=== PATIENT | male | born 1955 | race Caucasian/White ===

== ENCOUNTER 2018-10-28 17:05 | Observation (INO) ==
[2018-10-28 19:05] LABS: BASOPHILS # (AUTO) 0.1 X10^3/uL (0.0-0.1); BASOPHILS % (AUTO) 1.3 % (0.2-1.0); EOSINOPHILS # (AUTO) 0.2 x10^3/uL (0.0-0.2); EOSINOPHILS % (AUTO) 3.3 % (0.9-2.9); HEMATOCRIT 44.1 % (42.0-54.0); HEMOGLOBIN 15.2 g/dL (13.5-18.0); LYMPHOCYTES # (AUTO) 1.4 X10^3/uL (1.3-2.9); LYMPHOCYTES % (AUTO) 25.8 % (21.0-51.0); MEAN CORPUSCULAR HEMOGLOBIN 33.9 pg (27.0-34.0); MEAN CORPUSCULAR HGB CONC 34.4 g/dL (33.0-35.0); MEAN CORPUSCULAR VOLUME 98.4 fL (80.0-100.0); MEAN PLATELET VOLUME 8.6 fL (7.4-11.0); MONOCYTES # (AUTO) 0.5 x10^3/uL (0.3-0.8); MONOCYTES % (AUTO) 9.2 % (0.0-13.0); NEUTROPHILS # (AUTO) 3.3 x10^3/uL (2.2-4.8); NEUTROPHILS % (AUTO) 60.4 % (42.0-75.0); PLATELET COUNT 261 X10^3/uL (150.0-450.0); RED BLOOD COUNT 4.49 X10^6/uL (4.7-6.0); RED CELL DISTRIBUTION WIDTH 13.8 % (11.6-16.5); WHITE BLOOD COUNT 5.5 X10^3/uL (3.6-10.0)
[2018-10-28 19:17] LABS: ALANINE AMINOTRANSFERASE 24 Units/L (12-78); ALBUMIN 4.1 g/dL (3.4-5.0); ALKALINE PHOSPHATASE 70 Units/L (46-116); ASPARTATE AMINO TRANSFERASE 17 Units/L (15-37); BLOOD UREA NITROGEN 16 mg/dL (7-18); CALCIUM 9.1 mg/dL (8.5-10.1); CARBON DIOXIDE 26.3 mmol/L (21-32); CHLORIDE 103 mmol/L (98-107); CREATININE 0.89 mg/dL (0.70-1.30); SODIUM 139 mmol/L (136-145); TOTAL PROTEIN 7.5 g/dL (6.4-8.2); eGFR NON BLACK RACES > 60 (>60)
[2018-10-28] MEDS ORDERED: PEPCID 20 MG IV PREMIX* 20 MG/50 ML BAG IV ONE (19:28)
[2018-10-28] MEDS ORDERED: D5W 1000 ML IV 1,000 ML IV ONE (19:28)
[2018-10-28] MEDS: PEPCID 20 MG IV PREMIX* 20 MG/50 ML BAG IV SCH ×2 (19:33→21:38)
[2018-10-28] MEDS: D5W 1000 ML IV 1,000 ML IV SCH (19:33)
[2018-10-28 19:48] VITALS: BMI 24.9
[2018-10-29] MEDS: D5W 1000 ML IV 1,000 ML IV SCH ×2 (03:32→11:37)
--- NOTE | 2018-10-29 06:03 | RAD ---
HISTORY: Shortness of breath Study: Chest AP portable Comparison: None Findings: The heart is within normal limits in size. The brian are normal. The lungs are well inflated and free of acute infiltrates. No pleural effusions are identified. The bony thorax is unremarkable. IMPRESSION: No significant abnormality identified Reported By:
[2018-10-29 06:16] LABS: BILIRUBIN,URINE 1+ (NEGATIVE); BLOOD/HEMOGLOBIN,URINE NEGATIVE (NEGATIVE); GLUCOSE, URINE NEGATIVE (NEGATIVE); KETONES,URINE NEGATIVE (NEGATIVE); LEUKOCYTE ESTERASE ,URINE 1+ (NEGATIVE); NITRITES,URINE NEGATIVE (NEGATIVE); PROTEIN,URINE 2+ (NEGATIVE); UROBILINOGEN,URINE NORMAL (NORMAL)
[2018-10-29 06:28] LABS: APPEARANCE,URINE CLEAR (CLEAR); COLOR,URINE DARK YELLOW (YELLOW)
[2018-10-29 06:29] LABS: AMORPHOUS SEDIMENT,UR TRACE /HPF (NEGATIVE); BACTERIA,URINE NEGATIVE /HPF (NEGATIVE); MUCUS,URINE MANY /HPF (NEGATIVE); RBC,URINE NONE SEEN /HPF (NONE SEEN); SQUAMOUS EPITHELIAL CELL,UR RARE /HPF (NEGATIVE)
[2018-10-29] MEDS: PEPCID 20 MG IV PREMIX* 20 MG/50 ML BAG IV SCH (09:14)
--- NOTE | 2018-10-29 12:12 | DR.CONSULT ---
Consult - Consultation for Day of: Date: 10/29/18 - Chief Complaint Chief Complaint: Patient referred for dysphagia. Patient with complaints of dysphagia, occasional vomiting and epigastric pain. - History of Present Illness History of Present Illness: Patient is a 63yo male who was referred for dysphagia. Patient with complaints of dysphagia x 2weeks feels like food is getting stuck and when it does he vomits, occasional vomiting and epigastric pain. Patient denies dyspepsia, nausea, constipation, diarrhea, melena and hematochezia. Travis had an EGD of 5 years ago for dysphagia, Last colon was 05/03/2015 which showed 4 tubular adenomatous colon polyps and internal hemorrhoids. - Past Medical History Past Medical History: Hypertension - Past Surgical History Surgical History: Appendectomy - Social History Does patient currently use any type of tobacco product: Yes Have you used tobacco products in the last 12 months: Yes Type of Tobacco Use: Cigarettes Packs per day or dips/chews per day: 1ppd Alcohol Use: Occasionally Drug Use: None - Medications Home Medications: No Known Drug Allergies Allergy (Verified 10/28/18 19:54) CONTINUE taking the following medications fluoxetine 40 mg PO DAILY 10/28/18 [History] lisinopril 20 mg PO DAILY 10/28/18 [History] omeprazole 40 mg PO DAILY 10/28/18 [History] - Review of Systems Gastrointestinal: See HPI, Vomiting (occasional ), Abdominal Pain (epigastric ), Other (dysphagia) - Physical Exam Vital Signs: Temperature 98.4 F Pulse Rate [Right Brachial] 55 Respiratory Rate 20 Blood Pressure [Right Arm] 141/68 O2 Sat by Pulse Oximetry 99 Oriented: Time, Person, Place Eyes: Normal Ear: Normal Nose: Normal Throat: Normal Respiratory: Clear Throughout Cardiovascular: Normal Auscultation: Bowel Sounds: Normal Palpation: Normal, Other (no distention). negative: Spleen Enlarged, Liver Enlarged, Mass Pulsatile Tenderness: Normal (no tenderness) Skin: Normal Musculoskeletal: Normal Psychiatric: Normal Mood Description: Calm Affect: Normal Speech Pattern: Clear, Appropriate - Plan Plan: Assessment. 1. Dysphagia, vomiting and epigastric pain r/o esophageal stricutre. 2. H/o Multiple adenomatous colon polyps. Plan. 1. EGD today. 2. Patient will need colonoscopy as outpatient. Plan reviewed with Dr. Joseph - Allergies Allergies/Adverse Reactions: Allergies Allergy/AdvReac Type Severity Reaction Status Date / Time No Known Drug Allergies Allergy Verified 10/28/18 19:54
--- NOTE | 2018-10-29 12:48 | DR.UPDATE ---
H&P Update History and Physical Update: WAS SEEN IN THE OFFICE YESTERDAY FOR SEVERE DYSPHAGIA. A H&P WAS COMPLETED PRIOR TO ADMISSION. PATIENT HAS BEEN SEEN AND EXAMINED WITH NO CHANGES NOTED TO H&P. Changes noted: NO Yes with the following:
[2018-10-29] MEDS ORDERED: DIPRIVAN VIAL 20 ML ONE (13:51)
[2018-10-29] MEDS ORDERED: LR 1000 ML IV 1,000 ML IV ONE (13:59)
[2018-10-29 16:51] VITALS: BP 152/70
[2018-10-29] MEDS ORDERED: PriLOSEC PO SCH (21:00)
== END 2018-10-29 16:35 | disposition home or self-care (01) ==
LOC: MED/SURG
PROVIDERS: ADMIT Internal Medicine; ATTEND Internal Medicine
DX: R13.11 Dysphagia, oral phase; K22.10 Ulcer of esophagus without bleeding; K21.9 Gastro-esophageal reflux disease without esophagitis; I10 Essential (primary) hypertension; K22.2 Esophageal obstruction; K29.00 Acute gastritis without bleeding; R10.13 Epigastric pain
CPT/HCPCS: 36415; 71010; 71045; 80053; 81001; 85025; 88305; 88342; 93005; 96367; 96374; A4216; A4222; S0028; G0378; J2704; J7060; J7120